=== PATIENT | male | born 1990 | race Caucasian/White ===

== ENCOUNTER 2019-03-18 17:29 | Emergency (ER) | payer SELFPAY ==
[~2019-03-18 17:29] MED LIST: DOXYCYCLINE 10100 MG PO
[2019-03-18 17:39] VITALS: BP 125/74; TEMP 97.5
[2019-03-18 19:04] VITALS: PULSE 61
== END 2019-03-18 19:04 | disposition home or self-care (01) ==
LOC: COL.ER 17:29 → EDBD 17:29 → COL.ER 19:04
DX: H11.31 Conjunctival hemorrhage, right eye (principal)